=== PATIENT | male | born 1970 ===

== ENCOUNTER 2018-03-08 16:15 | Observation (INO) | payer OTHER ==
[2018-03-08 17:00] LABS: BASO # 0.1 K/uL (0.0-0.2); BASO % 1.2 % (0.0-2.0); EOS # 0.3 K/uL (0.0-0.7); EOS % 2.3 % (0.0-4.0); HEMOGLOBIN 16.3 g/dL (12.0-18.0); LYMPH # 1.8 K/uL (1.0-4.3); MEAN CELL VOLUME 87.7 fl (80.0-94.0); MEAN CORPUSCULAR HEMOGLOBIN 29.3 pg (27.0-31.0); MEAN CORPUSCULAR HGB CONC 33.5 g/dL (33.0-37.0); MEAN PLATELET VOLUME 9.4 fl (7.2-11.7); MONO # 1.1 K/uL (0.0-0.8); NEUT # 8.6 K/uL (1.8-7.0); NEUT % 72.5 % (50.0-75.0); NRBC % 0.3 % (0.0-0.0); RBC 5.57 Mil/uL (4.40-5.90); RED CELL DISTRIBUTION WIDTH 13.1 % (11.5-14.5); WHITE BLOOD COUNT 11.8 K/uL (4.8-10.8)
[2018-03-08 17:07] LABS: PROTHROMBIN TIME 11.6 Seconds (9.8-13.1)
[2018-03-08 17:10] LABS: PARTIAL THROMBOPLASTIN TIME 33.7 Seconds (25.6-37.1)
--- NOTE | 2018-03-08 17:14 | ED PDOC ---
HPI: Chest Pain Time Seen by Provider: 03/08/18 16:28 Chief Complaint (Nursing): Chest Pain Chief Complaint (Provider): Chest Pain History Per: Patient History/Exam Limitations: no limitations Onset/Duration Of Symptoms: Hrs (x8) Current Symptoms Are (Timing): Still Present Additional Complaint(s): 47 year old male, with a past medical history of untreated HTN, presents to the ED reporting left sided chest pain that started at about 09:00 today associated with light headedness, generalized weakness, SOB, and sweats. Patient reports he was at work and decided to go home and rest but continued to feel weak even though chest pain and SOB resolved prompting ED visit. He states he had a milder chest pain at about 2-3 weeks ago which he felt for a few seconds and resolved in a cough. Denies leg swelling, URI symptoms, fever, or chills. PMD: none Past Medical History Reviewed: Historical Data, Nursing Documentation, Vital Signs Vital Signs: Last Vital Signs Temp 97.9 F 03/08/18 16:20 Pulse 82 03/08/18 16:20 Resp 18 03/08/18 16:20 BP 221/139 H 03/08/18 16:20 Pulse Ox 99 03/08/18 16:20 - Medical History PMH: HTN - Surgical History Surgical History: No Surg Hx - Family History Family History: States: Hypertension Denies: CAD (in 1st degree relatives) - Social History Current smoker - smoking cessation education provided: No Alcohol: Other (Drinks heavily on weekends (about 12 bees a day Thursday to Thursday) and drinks a couple beers a day during the week) - Home Medications Home Medications: Ambulatory Orders Medication Instructions Recorded Albuterol Sulfate [Ventolin Hfa] 2 puff IH Q6 PRN 03/08/18 Aspirin 325 mg PO DAILY 03/08/18 - Allergies Allergies/Adverse Reactions: Allergies Allergy/AdvReac Type Severity Reaction Status Date / Time No Known Allergies Allergy Verified 03/08/18 16:23 Review of Systems ROS Statement: Except As Marked, All Systems Reviewed And Found Negative (as per HPI) Constitutional: Positive for: Weakness (generalized). Negative for: Fever, Chil ls Cardiovascular: Positive for: Chest Pain Respiratory: Positive for: Shortness of Breath, Other (URI symptoms) Musculoskeletal: Negative for: Other (leg swelling) Physical Exam - Reviewed Nursing Documentation Reviewed: Yes Vital Signs Reviewed: Yes - Physical Exam Appears: Positive for: No Acute Distress Gastrointestinal/Abdominal: Positive for: Other (Obese, protuberant abdomen) - Laboratory Results Result Diagrams: 03/08/18 16:40 03/08/18 16:40 - ECG ECG Rhythm: Positive for: Sinus Rhythm Interpretation Of ECG: t wave inversion in lateral leads; no st segment abnormalities Rate: 89 O2 Sat by Pulse Oximetry: 99 Medical Decision Making Medical Decision Making: Initial Impression: Chest pain with cardiac risk factors Initial Plan: --Type and screen stat --ECG --B-type natriuretic peptide stat --CMP --Magnesium stat --Phosphorous stat --Troponin stat --CBC --D Dimer --Partial thromboplastin time --Prothrombin time --Chest X-ray Patient needs hospitalization to r/o mace. Pending ER workup. Chest X-ray FINDINGS: LUNGS: Mild medial right lower lobe atelectasis or infiltrate. Please note that chest x-ray has limited sensitivity for the detection of pulmonary masses. PLEURA: No significant pleural effusion identified. No definite pneumothorax . CARDIOVASCULAR: Heart size appears top normal. No atherosclerotic calcification present. OSSEOUS STRUCTURES: Degenerative changes of the spine. VISUALIZED UPPER ABDOMEN: Unremarkable. OTHER FINDINGS: None. IMPRESSION: Mild medial right lower lobe atelectasis or infiltrate. HEART Pathway for Early Discharge in Acute Chest Pain from [facility] on 03/08/2018 All calculations should be rechecked by clinician prior to use RESULT SUMMARY: 4 points HEART Pathway Score High risk 1265% 30-day MACE Admit to hospital or observation. Further testing indicated. INPUTS: History > 1 = Moderately suspicious EKG > 1 = Non-specific repolarization disturbance Age > 1 = 45-64 Risk factors > 1 = 1-2 risk factors Initial troponin > 0 = normal limit 545p On reeval pt has recurrence of chest pain. Repeat EKG ordered. 18:32 Labs unremarkable. Repeat EKG showed no changes. Discussed with Dr. Cavazos for hospitalization. Scribe Attestation: Documented by Ge Gage acting as a scribe for Ligia White MD. Provider Scribe Attestation: All medical record entries made by the Scribe were at my direction and personally dictated by me. I have reviewed the chart and agree that the record accurately reflects my personal performance of the history, physical exam, medical decision making, and the department course for this patient. I have also personally directed, reviewed, and agree with the discharge instructions and disposition. Disposition - Clinical Impression Clinical Impression: Chest pain, Uncontrolled hypertension Counseled Patient/Family Regarding: Studies Performed, Diagnosis - Disposition Disposition Time: 17:00 Condition: GUARDED - Pt Status Changed To: Hospital Disposition Of: Observation - POA Present On Arrival: None
[2018-03-08 17:20] LABS: ALBUMIN 4.3 g/dL (3.5-5.0); ALT/SGPT 45 U/L (21-72); AST/SGOT 51 U/L (17-59); BLOOD UREA NITROGEN 15 mg/dl (9-20); CALCIUM 9.6 mg/dL (8.4-10.2); GFR NON-AFRICAN AMERICAN > 60
[2018-03-08 17:27] LABS: D DIMER < 200 ng/mlDDU (0-230)
[2018-03-08 17:32] LABS: B-TYPE NATRIURETIC PEPTIDE 101 pg/ml (0-450)
--- NOTE | 2018-03-08 17:43 | RAD ---
HISTORY: chest pain COMPARISON: No prior. TECHNIQUE: Chest PA and lateral FINDINGS: LUNGS: Mild medial right lower lobe atelectasis or infiltrate. Please note that chest x-ray has limited sensitivity for the detection of pulmonary masses. PLEURA: No significant pleural effusion identified. No definite pneumothorax . CARDIOVASCULAR: Heart size appears top normal. No atherosclerotic calcification present. OSSEOUS STRUCTURES: Degenerative changes of the spine. VISUALIZED UPPER ABDOMEN: Unremarkable. OTHER FINDINGS: None. IMPRESSION: Mild medial right lower lobe atelectasis or infiltrate.
[2018-03-08] MEDS ORDERED: Morphine 4 MG/ML VIAL IVP PRN (19:23)
[2018-03-08] MEDS ORDERED: Albuterol HFA 90 mcg/actuation (8 g) IH PRN (19:31)
--- NOTE | 2018-03-08 20:21 | CP.PCM.HP ---
<Sultan Karishma - Last Filed: 03/08/18 20:40> History of Present Illness - History of Present Illness History of Present Illness: CC: Chest pain HPI: 47 year old male with pmhx of uncontrolled HTN not on anti-hypertensive medication for 4 years, asthma and morbid obesity presents to [facility] ED with complaints of intermittent non radiating left sided chest pain (6/10 initially,now 4/10) since this morning associated shortness of breath and light headedness. Patient reports he had similar chest pain about 3 weeks lasted for less than a minutes, resolved with coughing. Reports non-productive cough for few months. Denies any nausea, vomiting, dyspnea of exertion, PND, leg swelling or fever.Patient has hx HTN for many years and has not been taking any medications for 4 years due to not having insurance. Patient reports he checked his BP at home few days ago and SBP was 189. PMD: none PMHX: hypertension, asthma and morbid obesity pmhx: denies Social hx: drinks 12 beers every weekends, denies smoking cigarettes. Quit cannabis about 10 yrs ago. Denies any ilicit drug uses. Family hx: Father: colon CA at age 50s. Maternal aunt had stroke Allergies: NKDA Medications: Ventolin HFA, aspirin 325 mg po daily Present on Admission - Present on Admission Any Indicators Present on Admission: No Review of Systems - Review of Systems Review of Systems: All 12 systems reviewed and negative except as mentioned in HPI Past Patient History - Past Social History Alcohol: Other (Drinks heavily on weekends (about 12 bees a day Thursday to Thursday) and drinks a couple beers a day during the week) - CARDIAC Hx Hypertension: Yes - PSYCHIATRIC Hx Substance Use: No Meds Allergies/Adverse Reactions: Allergies Allergy/AdvReac Type Severity Reaction Status Date / Time No Known Allergies Allergy Verified 03/08/18 16:23 Physical Exam - Constitutional Appears: Non-toxic, No Acute Distress, Other (morbidly obese) - Head Exam Head Exam: ATRAUMATIC, NORMAL INSPECTION, NORMOCEPHALIC - Eye Exam Eye Exam: EOMI, Normal appearance, PERRL - ENT Exam ENT Exam: Mucous Membranes Moist, Normal Exam - Neck Exam Neck exam: Positive for: Full Rom, Normal Inspection. Negative for: Meningismus - Respiratory Exam Respiratory Exam: Clear to Auscultation Bilateral, NORMAL BREATHING PATTERN. absent: Rhonchi, Wheezes, Respiratory Distress - Cardiovascular Exam Cardiovascular Exam: REGULAR RHYTHM, RRR, +S1, +S2. absent: Gallop Additional comments: No chest wall tenderness - GI/Abdominal Exam GI & Abdominal Exam: Normal Bowel Sounds, Soft. absent: Tenderness Additional comments: morbidly obese with abdominal girth - Extremities Exam Extremities exam: Positive for: normal capillary refill, normal inspection, pedal pulses present. Negative for: calf tenderness, pedal edema - Neurological Exam Neurological exam: Alert, CN II-XII Intact, Oriented x3 - Psychiatric Exam Psychiatric exam: Normal Affect, Normal Mood - Skin Skin Exam: Normal Color, Warm Results - Vital Signs Recent Vital Signs: Last Vital Signs Temp 97.9 F 03/08/18 16:20 Pulse 86 03/08/18 18:55 Resp 19 03/08/18 18:53 BP 195/137 H 03/08/18 18:55 Pulse Ox 96 03/08/18 18:53 - Labs Result Diagrams: 03/08/18 16:40 03/08/18 16:40 Labs: Laboratory Results - last 24 hr 03/08/18 03/08/18 03/08/18 16:40 16:40 16:40 WBC 11.8 H RBC 5.57 Hgb 16.3 Hct 48.8 MCV 87.7 MCH 29.3 MCHC 33.5 RDW 13.1 Plt Count 251 MPV 9.4 Neut % (Auto) 72.5 Lymph % (Auto) 15.0 L [place] % (Auto) 9.0 Eos % (Auto) 2.3 Baso % (Auto) 1.2 Neut # (Auto) 8.6 H Lymph # (Auto) 1.8 [place] # (Auto) 1.1 H Eos # (Auto) 0.3 Baso # (Auto) 0.1 PT 11.6 INR 1.0 APTT 33.7 D-Dimer, Quantitative < 200 Sodium 137 Potassium 4.1 Chloride 104 Carbon Dioxide 23 Anion Gap 14 BUN 15 Creatinine 1.0 Est GFR ( Amer) > 60 Est GFR (Non-Af Amer) > 60 Random Glucose 104 Calcium 9.6 Phosphorus 2.9 Magnesium 1.9 Total Bilirubin 1.2 AST 51 ALT 45 Alkaline Phosphatase 78 Troponin I 0.0500 NT-Pro-B Natriuret Pep 101 Total Protein 8.7 H Albumin 4.3 Globulin 4.5 H Albumin/Globulin Ratio 1.0 Blood Type Antibody Screen BBK History Checked 03/08/18 16:40 WBC RBC Hgb Hct MCV MCH MCHC RDW Plt Count MPV Neut % (Auto) Lymph % (Auto) [place] % (Auto) Eos % (Auto) Baso % (Auto) Neut # (Auto) Lymph # (Auto) [place] # (Auto) Eos # (Auto) Baso # (Auto) PT INR APTT D-Dimer, Quantitative Sodium Potassium Chloride Carbon Dioxide Anion Gap BUN Creatinine Est GFR ( Amer) Est GFR (Non-Af Amer) Random Glucose Calcium Phosphorus Magnesium Total Bilirubin AST ALT Alkaline Phosphatase Troponin I NT-Pro-B Natriuret Pep Total Protein Albumin Globulin Albumin/Globulin Ratio Blood Type O POSITIVE Antibody Screen Negative BBK History Checked No verified bt Assessment & Plan - Assessment and Plan (Free Text) Assessment: 47 year old male with pmhx of uncontrolled HTN not on anti-hypertensive medication for 4 years, asthma and morbid obesity admitted for evaluation of chest pain to r/o ACS Plan: Chest pain -r/o ACS -Admit to telemetry -s/p aspirin 325 mg and nitroglycerin 0.4 mg SL in ED -EKG: NSR @89 bpm. T wave inversion in lead I, AVL and V1. No ST or Q wave changes -Troponin x 1 neg, f/u troponin x 2 -Continue with aspirin, morphine prn and nitroglycerin Uncontrolled Hypertension -Initial BP in ED 221/139, now 189/123 -s/p Metoprolol 12.5 mg in ED -c/w Metoprolol 12.5 mg po q12 hr -Monitor BP, lower BP no more than 25 % of his baseline -f/u BMP and lipid panel Asthma -stable -c/w albuterol HFA q6h prn Unhealthy alcohol use: -counseled to reduce intake -f/u outpatient Prophylaxis: DVT prophylaxis: lovenox 40 mg sc daily GI prophylaxis: protonix 40 mg po daily Diet: -Heart Healthy diet Code status: -full code Patient seen , examined and plan d/w Dr. Dirk Schwarz, pgy-2 <Shaun Cavazos D - Last Filed: 03/09/18 00:20> Results - Vital Signs Recent Vital Signs: Last Vital Signs Temp 98.7 F 03/08/18 22:08 Pulse 87 03/08/18 23:05 Resp 17 03/08/18 23:05 BP 136/93 H 03/08/18 23:05 Pulse Ox 95 03/08/18 23:05 - Labs Result Diagrams: 03/08/18 16:40 03/08/18 16:40 Labs: Laboratory Results - last 24 hr 03/08/18 03/08/18 03/08/18 16:40 16:40 16:40 WBC 11.8 H RBC 5.57 Hgb 16.3 Hct 48.8 MCV 87.7 MCH 29.3 MCHC 33.5 RDW 13.1 Plt Count 251 MPV 9.4 Neut % (Auto) 72.5 Lymph % (Auto) 15.0 L [place] % (Auto) 9.0 Eos % (Auto) 2.3 Baso % (Auto) 1.2 Neut # (Auto) 8.6 H Lymph # (Auto) 1.8 [place] # (Auto) 1.1 H Eos # (Auto) 0.3 Baso # (Auto) 0.1 PT 11.6 INR 1.0 APTT 33.7 D-Dimer, Quantitative < 200 Sodium 137 Potassium 4.1 Chloride 104 Carbon Dioxide 23 Anion Gap 14 BUN 15 Creatinine 1.0 Est GFR ( Amer) > 60 Est GFR (Non-Af Amer) > 60 Random Glucose 104 Calcium 9.6 Phosphorus 2.9 Magnesium 1.9 Total Bilirubin 1.2 AST 51 ALT 45 Alkaline Phosphatase 78 Troponin I 0.0500 NT-Pro-B Natriuret Pep 101 Total Protein 8.7 H Albumin 4.3 Globulin 4.5 H Albumin/Globulin Ratio 1.0 Blood Type Antibody Screen BBK History Checked 03/08/18 16:40 WBC RBC Hgb Hct MCV MCH MCHC RDW Plt Count MPV Neut % (Auto) Lymph % (Auto) [place] % (Auto) Eos % (Auto) Baso % (Auto) Neut # (Auto) Lymph # (Auto) [place] # (Auto) Eos # (Auto) Baso # (Auto) PT INR APTT D-Dimer, Quantitative Sodium Potassium Chloride Carbon Dioxide Anion Gap BUN Creatinine Est GFR ( Amer) Est GFR (Non-Af Amer) Random Glucose Calcium Phosphorus Magnesium Total Bilirubin AST ALT Alkaline Phosphatase Troponin I NT-Pro-B Natriuret Pep Total Protein Albumin Globulin Albumin/Globulin Ratio Blood Type O POSITIVE Antibody Screen Negative BBK History Checked No verified bt Attending/Attestation - Attestation I have personally seen and examined this patient.: Yes I have fully participated in the care of the patient.: Yes I have reviewed all pertinent clinical information: Yes Notes (Text): 03/09/18 00:19 Patient seen and examined with resident. Case discussed and agreed with assessment and plan of management.
[2018-03-08] MEDS ORDERED: Enalaprilat 2.5 MG/2 ML IV STA (20:22)
[2018-03-08] MEDS ORDERED: EnalaprilAT 1.25 mg/ml Inj ONE (20:31)
[2018-03-08] MEDS ORDERED: Azithromycin 500 MG in Sodium Chloride 0.9% 250 ML IVPB SCH (21:45)
[2018-03-08] MEDS ORDERED: Azithromycin 500 MG IV IVPB ONE (22:04)
[2018-03-08] MEDS: Azithromycin 500 MG in Sodium Chloride 0.9% 250 ML IVPB SCH (23:12)
[2018-03-09 01:18] VITALS: RESP 18
[2018-03-09 05:43] LABS: BASO # 0.1 K/uL (0.0-0.2); BASO % 0.5 % (0.0-2.0); EOS # 0.2 K/uL (0.0-0.7); EOS % 2.4 % (0.0-4.0); HEMOGLOBIN 16.1 g/dL (12.0-18.0); LYMPH # 2.1 K/uL (1.0-4.3); LYMPH % 19.8 % (20.0-40.0); MEAN CELL VOLUME 87.9 fl (80.0-94.0); MEAN CORPUSCULAR HEMOGLOBIN 29.3 pg (27.0-31.0); MEAN CORPUSCULAR HGB CONC 33.4 g/dL (33.0-37.0); MEAN PLATELET VOLUME 9.4 fl (7.2-11.7); MONO # 1.2 K/uL (0.0-0.8); MONO % 11.7 % (0.0-10.0); NEUT # 6.8 K/uL (1.8-7.0); NEUT % 65.6 % (50.0-75.0); NRBC % 0.1 % (0.0-0.0); RBC 5.49 Mil/uL (4.40-5.90); RED CELL DISTRIBUTION WIDTH 13.5 % (11.5-14.5); WHITE BLOOD COUNT 10.4 K/uL (4.8-10.8)
[2018-03-09 06:07] LABS: BLOOD UREA NITROGEN 16 mg/dl (9-20); CALCIUM 9.6 mg/dL (8.4-10.2); GFR NON-AFRICAN AMERICAN > 60; HDL CHOLESTEROL 64 MG/DL (30-70)
[2018-03-09 06:18] LABS: LDL CHOLESTEROL 125 mg/dL (0-129)
--- NOTE | 2018-03-09 06:57 | CP.PCM.PN ---
Subjective - Date & Time of Evaluation Date of Evaluation: 03/09/18 Time of Evaluation: 06:57 Objective - Vital Signs/Intake and Output Vital Signs (last 24 hours): Temp Pulse Resp BP Pulse Ox 98 F 74 18 157/99 H 95 03/09/18 05:00 03/09/18 05:00 03/09/18 05:00 03/09/18 05:00 03/09/18 05:00 - Medications Medications: Current Medications Albuterol (Ventolin Hfa 90 Mcg/Actuation (8 G)) 2 puff IH Q6 PRN PRN Reason: Shortness of Breath Aspirin (Aspirin) 325 mg PO DAILY SHANIQUA Docusate Sodium (Colace Liquid) 100 mg NG BID PRN PRN Reason: Constipation Enoxaparin Sodium (Lovenox) 40 mg SC DAILY SHANIQUA; Protocol Ceftriaxone Sodium 1 gm/ (Sodium Chloride) 100 mls @ 100 mls/hr IVPB DAILY SHANIQUA; Protocol Last Admin: 03/08/18 23:47 Dose: 100 mls/hr Azithromycin 500 mg/ Sodium (Chloride) 250 mls @ 250 mls/hr IVPB DAILY SHANIQUA; Protocol Last Admin: 03/08/18 23:12 Dose: Not Given Metoprolol Tartrate (Lopressor) 50 mg PO Q12 SHANIQUA Last Admin: 03/08/18 18:55 Dose: 50 mg Morphine Sulfate (Morphine) 2 mg IVP Q6 PRN PRN Reason: chest pain Nitroglycerin (Nitrostat Sl Tab) 0.4 mg SL Q5M PRN PRN Reason: chest pain Pantoprazole Sodium (Protonix Ec Tab) 40 mg PO DAILY SHANIQUA - Labs Labs: 03/09/18 05:10 03/09/18 05:10 PT 11.6 Seconds (9.8-13.1) 03/08/18 16:40 INR 1.0 03/08/18 16:40 APTT 33.7 Seconds (25.6-37.1) 03/08/18 16:40
[2018-03-09 08:32] VITALS: BP 141/88; PULSE 69; TEMP 98.1; O2SAT 98
[2018-03-09] MEDS: Azithromycin 500 MG in Sodium Chloride 0.9% 250 ML IVPB SCH (08:37)
[2018-03-09] MEDS ORDERED: Enoxaparin 40 mg Syringe SC SCH (09:00)
[2018-03-09] MEDS ORDERED: Pantoprazole 40 mg EC Tab PO SCH (09:00)
--- NOTE | 2018-03-09 10:20 | RAD ---
Date of service: 03/09/2018 HISTORY: cough COMPARISON: 03/08/2018 TECHNIQUE: Chest PA and lateral FINDINGS: LUNGS: Linear scar/atelectasis left infrahilar region. No infiltrate. PLEURA: No significant pleural effusion identified. No pneumothorax apparent. CARDIOVASCULAR: No aortic atherosclerotic calcification present. Normal cardiac size. No pulmonary vascular congestion. OSSEOUS STRUCTURES: No significant abnormalities. VISUALIZED UPPER ABDOMEN: Normal. OTHER FINDINGS: None. IMPRESSION: No active disease.
--- NOTE | 2018-03-09 12:03 | CP.PCM.DIS ---
<Nisa Lara - Last Filed: 03/09/18 12:04> Provider - Provider Date of Admission: 03/08/18 18:30 Attending physician: Shaun Cavazos MD Consults: 03/09/18 00:42 Social Work Referral Routine Comment: Alcohol abuse Physician Instructions: Reason For Exam: Alcohol abuse Time Spent in preparation of Discharge (in minutes): 35 Diagnosis - Discharge Diagnosis (1) Chest pain Status: Resolved Priority: Low (2) Uncontrolled hypertension Status: Chronic Priority: Medium Hospital Course - Lab Results Lab Results: Most Recent Lab Values WBC 10.4 K/uL (4.8-10.8) 03/09/18 05:10 RBC 5.49 Mil/uL (4.40-5.90) 03/09/18 05:10 Hgb 16.1 g/dL (12.0-18.0) 03/09/18 05:10 Hct 48.3 % (35.0-51.0) 03/09/18 05:10 MCV 87.9 fl (80.0-94.0) 03/09/18 05:10 MCH 29.3 pg (27.0-31.0) 03/09/18 05:10 MCHC 33.4 g/dL (33.0-37.0) 03/09/18 05:10 RDW 13.5 % (11.5-14.5) 03/09/18 05:10 Plt Count 240 K/uL (130-400) 03/09/18 05:10 MPV 9.4 fl (7.2-11.7) 03/09/18 05:10 Neut % (Auto) 65.6 % (50.0-75.0) 03/09/18 05:10 Lymph % (Auto) 19.8 % (20.0-40.0) L 03/09/18 05:10 [place] % (Auto) 11.7 % (0.0-10.0) H 03/09/18 05:10 Eos % (Auto) 2.4 % (0.0-4.0) 03/09/18 05:10 Baso % (Auto) 0.5 % (0.0-2.0) 03/09/18 05:10 Neut # (Auto) 6.8 K/uL (1.8-7.0) 03/09/18 05:10 Lymph # (Auto) 2.1 K/uL (1.0-4.3) 03/09/18 05:10 [place] # (Auto) 1.2 K/uL (0.0-0.8) H 03/09/18 05:10 Eos # (Auto) 0.2 K/uL (0.0-0.7) 03/09/18 05:10 Baso # (Auto) 0.1 K/uL (0.0-0.2) 03/09/18 05:10 PT 11.6 Seconds (9.8-13.1) 03/08/18 16:40 INR 1.0 03/08/18 16:40 APTT 33.7 Seconds (25.6-37.1) 03/08/18 16:40 D-Dimer, Quantitative < 200 ng/mlDDU (0-230) 03/08/18 16:40 Sodium 138 mmol/l (132-148) 03/09/18 05:10 Potassium 3.8 MMOL/L (3.6-5.0) 03/09/18 05:10 Chloride 101 mmol/L (98-107) 03/09/18 05:10 Carbon Dioxide 26 mmol/L (22-30) 03/09/18 05:10 Anion Gap 15 (10-20) 03/09/18 05:10 BUN 16 mg/dl (9-20) 03/09/18 05:10 Creatinine 1.2 mg/dl (0.8-1.5) 03/09/18 05:10 Est GFR ( Amer) > 60 03/09/18 05:10 Est GFR (Non-Af Amer) > 60 03/09/18 05:10 Random Glucose 99 mg/dL (75-110) 03/09/18 05:10 Hemoglobin A1c 5.6 % (4.2-6.5) 03/09/18 05:10 Lactic Acid 1.2 MMOL/L (0.7-2.1) 03/09/18 05:15 Calcium 9.6 mg/dL (8.4-10.2) 03/09/18 05:10 Phosphorus 2.9 mg/dl (2.5-4.5) 03/08/18 16:40 Magnesium 1.9 MG/DL (1.6-2.3) 03/08/18 16:40 Total Bilirubin 1.2 mg/dl (0.2-1.3) 03/08/18 16:40 AST 51 U/L (17-59) 03/08/18 16:40 ALT 45 U/L (21-72) 03/08/18 16:40 Alkaline Phosphatase 78 U/L (38-126) 03/08/18 16:40 Troponin I 0.0450 ng/mL (0.00-0.120) 03/09/18 10:22 NT-Pro-B Natriuret Pep 101 pg/ml (0-450) 03/08/18 16:40 Total Protein 8.7 G/DL (6.3-8.2) H 03/08/18 16:40 Albumin 4.3 g/dL (3.5-5.0) 03/08/18 16:40 Globulin 4.5 gm/dL (2.2-3.9) H 03/08/18 16:40 Albumin/Globulin Ratio 1.0 (1.0-2.1) 03/08/18 16:40 Triglycerides 202 mg/DL (0-149) H 03/09/18 05:10 Cholesterol 204 mg/dL (0-199) H 03/09/18 05:10 LDL Cholesterol Direct 125 mg/dL (0-129) 03/09/18 05:10 HDL Cholesterol 64 MG/DL (30-70) 03/09/18 05:10 Blood Type O POSITIVE 03/08/18 16:40 Blood Type Confirm O POSITIVE 03/08/18 18:00 Antibody Screen Negative 03/08/18 16:40 BBK History Checked No verified bt 03/08/18 16:40 - Hospital Course Hospital Course: 47 y/o non-compliant, morbidly obese male w/ pmhx of uncontrolled HTN and asthma who was admitted w/ a blood pressure of 222/139, chest pain, and cough x 3 weeks. EKG: NSR @89 bpm. T wave inversion in lead I, AVL and V1. No ST or Q wave changes. Troponins were negative x 3. CXR showed possible atelectasis vs. small infiltrate. Patient was given aspirin, morphine prn and nitroglycerin; chest pain improved. On re-evaluation, patient reported lifting heavy object a few days prior and states that chest pain is localized to left lower ribs and is elicited w/ palpation. Repeat CXR on second day of admission did not show any pathology. Patient was started on Metoprolol 12.5 mg po q12 hr and his BP was stabilized. Patient was discharged on home medications PLUS NEW MEDS: Metoprolol 50mg PO Q12, Asprin 81 mg PO QD, Losartan 25mg PO QD, Simvistatin 5mg PO QD, and Z-pack 500mg PO on day 1 then 250mg PO for 4 days. Patient instructed to follow up in [facility] on 03/15/2018. Discharge Exam - Head Exam Head Exam: ATRAUMATIC, NORMAL INSPECTION, NORMOCEPHALIC - Respiratory Exam Respiratory Exam: Clear to PA & Lateral, NORMAL BREATHING PATTERN - Cardiovascular Exam Cardiovascular Exam: REGULAR RHYTHM, +S1, +S2 - GI/Abdominal Exam GI & Abdominal Exam: Normal Bowel Sounds, Soft. absent: Tenderness - Neurological Exam Neurological exam: Oriented x3 - Psychiatric Exam Psychiatric exam: Normal Affect - Skin Skin Exam: Dry, Intact, Warm Discharge Plan - Discharge Medications Prescriptions: Aspirin [Adult Aspirin] 81 mg PO DAILY 30 Days #30 tablet. Azithromycin [Z-Arpit] 250 mg PO DAILY #6 tab Losartan [Cozaar] 25 mg PO DAILY 30 Days #30 tab Metoprolol Tartrate [Lopressor] 50 mg PO Q12 30 Days #60 tab Simvastatin 5 mg PO DAILY 30 Days #30 tablet - Follow Up Plan Condition: FAIR Disposition: HOME/ ROUTINE Patient education suggested?: Yes Instructions: Low Salt Diet, Controlling Your Blood Pressure Through Lifestyle, Hypertension (DC), Hypertension (GEN) Additional Instructions: Patient scheduled for f/u in outpatient clinic at [facility] w/ Dr. James on 03/15/2018 at 9AM Referrals: [facility] [Outside] <Zee Yuen - Last Filed: 03/09/18 16:13> Provider - Provider Date of Admission: 03/08/18 18:30 Attending physician: Shaun Cavazos MD Consults: 03/09/18 00:42 Social Work Referral Routine Comment: Alcohol abuse Physician Instructions: Reason For Exam: Alcohol abuse Hospital Course - Lab Results Lab Results: Most Recent Lab Values WBC 10.4 K/uL (4.8-10.8) 03/09/18 05:10 RBC 5.49 Mil/uL (4.40-5.90) 03/09/18 05:10 Hgb 16.1 g/dL (12.0-18.0) 03/09/18 05:10 Hct 48.3 % (35.0-51.0) 03/09/18 05:10 MCV 87.9 fl (80.0-94.0) 03/09/18 05:10 MCH 29.3 pg (27.0-31.0) 03/09/18 05:10 MCHC 33.4 g/dL (33.0-37.0) 03/09/18 05:10 RDW 13.5 % (11.5-14.5) 03/09/18 05:10 Plt Count 240 K/uL (130-400) 03/09/18 05:10 MPV 9.4 fl (7.2-11.7) 03/09/18 05:10 Neut % (Auto) 65.6 % (50.0-75.0) 03/09/18 05:10 Lymph % (Auto) 19.8 % (20.0-40.0) L 03/09/18 05:10 [place] % (Auto) 11.7 % (0.0-10.0) H 03/09/18 05:10 Eos % (Auto) 2.4 % (0.0-4.0) 03/09/18 05:10 Baso % (Auto) 0.5 % (0.0-2.0) 03/09/18 05:10 Neut # (Auto) 6.8 K/uL (1.8-7.0) 03/09/18 05:10 Lymph # (Auto) 2.1 K/uL (1.0-4.3) 03/09/18 05:10 [place] # (Auto) 1.2 K/uL (0.0-0.8) H 03/09/18 05:10 Eos # (Auto) 0.2 K/uL (0.0-0.7) 03/09/18 05:10 Baso # (Auto) 0.1 K/uL (0.0-0.2) 03/09/18 05:10 PT 11.6 Seconds (9.8-13.1) 03/08/18 16:40 INR 1.0 03/08/18 16:40 APTT 33.7 Seconds (25.6-37.1) 03/08/18 16:40 D-Dimer, Quantitative < 200 ng/mlDDU (0-230) 03/08/18 16:40 Sodium 138 mmol/l (132-148) 03/09/18 05:10 Potassium 3.8 MMOL/L (3.6-5.0) 03/09/18 05:10 Chloride 101 mmol/L (98-107) 03/09/18 05:10 Carbon Dioxide 26 mmol/L (22-30) 03/09/18 05:10 Anion Gap 15 (10-20) 03/09/18 05:10 BUN 16 mg/dl (9-20) 03/09/18 05:10 Creatinine 1.2 mg/dl (0.8-1.5) 03/09/18 05:10 Est GFR ( Amer) > 60 03/09/18 05:10 Est GFR (Non-Af Amer) > 60 03/09/18 05:10 Random Glucose 99 mg/dL (75-110) 03/09/18 05:10 Hemoglobin A1c 5.6 % (4.2-6.5) 03/09/18 05:10 Lactic Acid 1.2 MMOL/L (0.7-2.1) 03/09/18 05:15 Calcium 9.6 mg/dL (8.4-10.2) 03/09/18 05:10 Phosphorus 2.9 mg/dl (2.5-4.5) 03/08/18 16:40 Magnesium 1.9 MG/DL (1.6-2.3) 03/08/18 16:40 Total Bilirubin 1.2 mg/dl (0.2-1.3) 03/08/18 16:40 AST 51 U/L (17-59) 03/08/18 16:40 ALT 45 U/L (21-72) 03/08/18 16:40 Alkaline Phosphatase 78 U/L (38-126) 03/08/18 16:40 Troponin I 0.0450 ng/mL (0.00-0.120) 03/09/18 10:22 NT-Pro-B Natriuret Pep 101 pg/ml (0-450) 03/08/18 16:40 Total Protein 8.7 G/DL (6.3-8.2) H 03/08/18 16:40 Albumin 4.3 g/dL (3.5-5.0) 03/08/18 16:40 Globulin 4.5 gm/dL (2.2-3.9) H 03/08/18 16:40 Albumin/Globulin Ratio 1.0 (1.0-2.1) 03/08/18 16:40 Triglycerides 202 mg/DL (0-149) H 03/09/18 05:10 Cholesterol 204 mg/dL (0-199) H 03/09/18 05:10 LDL Cholesterol Direct 125 mg/dL (0-129) 03/09/18 05:10 HDL Cholesterol 64 MG/DL (30-70) 03/09/18 05:10 Blood Type O POSITIVE 03/08/18 16:40 Blood Type Confirm O POSITIVE 03/08/18 18:00 Antibody Screen Negative 03/08/18 16:40 BBK History Checked No verified bt 03/08/18 16:40 Attending/Attestation - Attestation I have personally seen and examined this patient.: Yes I have fully participated in the care of the patient.: Yes I have reviewed all pertinent clinical information, including history, physical exam and plan: Yes Notes (Text): 03/09/18 16:1 1. Chest Pain, ACS ruled out, Pain likely due to Musculoskeletal Pain from coughing 2. Hypertensive Urgency 3. Upper Respiratory Tract Infection - Trop x 3 negative - no EKG change - BP now controlled on oral antihypertensives - received IV ceftraixone and Azithro , CXR PA and lateral : neg
--- NOTE | 2018-03-09 12:06 | CARD ---
APPROVED REPORT Date of service: 03/08/2018 EKG Measurement Heart [id number] <Conclusion> Normal sinus rhythm T wave abnormality, consider lateral ischemia Prolonged QT Abnormal ECG
--- NOTE | 2018-03-09 12:08 | CARD ---
APPROVED REPORT Date of service: 03/08/2018 EKG Measurement Heart [id number] <Conclusion> Normal sinus rhythm T wave abnormality, consider lateral ischemia Abnormal ECG
== END 2018-03-09 12:57 | disposition home or self-care (01) ==
LOC: H.ER 16:15 → H.ERHOLD 18:30 → H.TEL 23:15
DX: R07.89 Other chest pain (principal); I10 Essential (primary) hypertension; I16.0 Hypertensive urgency; J06.9 Acute upper respiratory infection, unspecified; J45.909 Unspecified asthma, uncomplicated; J98.11 Atelectasis; Z79.82 Long term (current) use of aspirin; Z80.0 Family history of malignant neoplasm of digestive organs; Z82.3 Family history of stroke; Z91.19 Patient's noncompliance with other medical treatment and regimen; E66.01 Morbid (severe) obesity due to excess calories; X50.0XXA Overexertion from strenuous movement or load, initial encounter; Z79.899 Other long term (current) drug therapy
CPT/HCPCS: 36415; 71046; 80048; 80053; 80061; 83036; 83605; 83735; 83880; 84100; 84484; 85025; 85378; 85610; 85730; 86850; 86900; 87040; 93005; 96365; 99285; G0378; J0360; J0456; J0696; J1650